=== PATIENT | female | born 1945 | race Caucasian/White ===

== ENCOUNTER 2016-09-14 04:14 | Inpatient (IN) ==
[2016-09-08 09:34] LABS: MANUAL DIFF NEEDED? NO; URINE MICRO REVIEW NEEDED? NO; URINE SOURCE CLEAN CATCH
[2016-09-08 09:53] LABS: BASO% 0.1 % (0.0-0.8); EOS# 0.13 X1000 (0.0-0.7); EOS% 1.5 % (0.0-10.0); HEMATOCRIT 37.1 % (37.0-47.0); IMM GRAN# 0.02 X1000 (0.0-0.04); IMM GRAN% 0.2 % (0.0-0.5); LYMPH# 1.86 X1000 (1.2-3.4); LYMPH% 20.8 % (20.5-51.1); MCH 30.2 PG (27-31); MCHC 32.3 g/dL (33-37); MCV 93.5 FL (81-99); MONO# 0.43 X1000 (0.11-0.59); MONO% 4.8 % (1.7-9.3); MPV 9.2 FL (7.4-10.4); NEUT% 72.6 % (42.2-75.2); PLT 247 X1000 (130-400); RBC 3.97 XMIL (4.2-5.4)
--- NOTE | 2016-09-08 09:55 | EKG Report ---
Test Performed on : 09/08/2016 09:09:34 AM Test Reason : PAT Blood Pressure : / mmHG Vent. Rate : 072 BPM Atrial Rate : 072 BPM P-R Int : 158 ms QRS Dur : 098 ms QT Int : 380 ms P-R-T Axes : 047 012 050 degrees QTc Int : 416 ms Normal sinus rhythm. with sinus arrhythmia. Incomplete right bundle branch block Borderline ECG No previous ECGs available Confirmed by Sadiq BROWN, Jerry Varela ([id number]) on 09/08/2016 5:57:53 PM
[2016-09-08 09:56] LABS: BILIRUBIN URINE NEGATIVE (NEGATIVE); BLOOD URINE NEGATIVE (NEGATIVE); COLOR YELLOW; GLUCOSE URINE NEGATIVE (NEGATIVE); LEUKOCYTES URINE NEGATIVE (NEGATIVE); NITRITE URINE NEGATIVE (NEGATIVE); PH URINE 6.5; PROTEIN URINE NEGATIVE (NEGATIVE); SP GRAVITY URINE 1.012; TURBIDITY URINE CLEAR (CLEAR); UROBILINOGEN URINE NORMAL (NORMAL)
[2016-09-08 09:58] LABS: UR EPITHELIAL CELLS <10 /HPF (<10); URINE BACTERIA NEGATIVE /HPF; URINE RBC <10 /HPF (<10); URINE WBC <10 /HPF (<10)
[2016-09-08 10:06] LABS: INR 1.02; PROTIME 10.7 Seconds (9.2-11.7); PTT 27.1 Seconds (22.0-36.0)
[2016-09-08 10:45] LABS: AGAP 13; BUN 19 mg/dL (8-22); CALCIUM 9.5 mg/dL (8.8-10.2); CHLORIDE 97 mmol/L (98-107); COSMO 280; POTASSIUM 4.6 mmol/L (3.5-5.1); SODIUM 139 mmol/L (136-145); TCO2 29 mmol/L (25-35)
[2016-09-14] MEDS ORDERED: COLACE ONE (05:22)
[2016-09-14] MEDS ORDERED: CELEBREX ONE (05:22)
[2016-09-14] MEDS ORDERED: LR 0 ML ONE (05:22)
[2016-09-14] MEDS ORDERED: LR 1,000 ML ONE (05:22)
[2016-09-14] MEDS ORDERED: VANCOMYCIN 1 GM/NS 1 GM/250 ML IVPB ONE (05:22)
[2016-09-14] MEDS ORDERED: LYRICA ONE (05:22)
[2016-09-14] MEDS ORDERED: PEPCID ONE (05:23)
[2016-09-14] MEDS ORDERED: REGLAN ONE (05:29)
[2016-09-14] MEDS ORDERED: TORADOL ONE (06:36)
[2016-09-14] MEDS ORDERED: CYKLOKAPRON 1,000 MG/NS 1,000 MG/100 ML IVPB ONE ×2 (06:36→06:37)
[2016-09-14] MEDS ORDERED: VANCOMYCIN ONE (06:36)
[2016-09-14] MEDS ORDERED: DURAMORPH ONE (06:36)
[2016-09-14] MEDS ORDERED: SODIUM CHLORIDE 0.9% ONE (06:36)
[2016-09-14] MEDS ORDERED: MARCAINE 0.25% PF/EPI 1:200,000 ONE (06:36)
[2016-09-14] MEDS ORDERED: NEOSPORIN G.U. IRRIGANT ONE (06:37)
[2016-09-14] MEDS ORDERED: CLAVE SECONDARY SET 11953 ONE (06:37)
[2016-09-14] MEDS ORDERED: EXPAREL 1.3% ONE (06:37)
--- NOTE | 2016-09-14 07:16 | HISTORY AND PHYSICAL ---
CHIEF COMPLAINT: Right-sided knee pain. HISTORY OF PRESENT ILLNESS: Ms. Dukes is a 71-year-old, white female with a history of right knee pain for over 1 year. She still has pain with her right knee despite conservative therapy. She is being admitted to the hospital today for a right total knee arthroplasty. PAST MEDICAL HISTORY: Hypertension, hyperlipidemia, anxiety, and depression. PAST SURGICAL HISTORY: Left total knee arthroplasty and hysterectomy. FAMILY HISTORY: Noncontributory. SOCIAL HISTORY: She is . She denies using tobacco and alcohol. HOME MEDICATIONS: Gabapentin 300 mg p.o. b.i.d., aripiprazole 2 mg p.o. daily, potassium chloride 20 mEq p.o. daily, meloxicam 15 mg p.o. daily, clonazepam 1 mg p.o. daily, ergocalciferol 50,000 units p.o. daily, losartan potassium 100 mg p.o. daily, Zyrtec 10 mg p.o. daily, Lasix 40 mg p.o. daily, Lipitor 20 mg p.o. daily, Elavil 50 mg p.o. daily, [place] 7.5 one p.o. b.i.d. p.r.n. ALLERGIES: Penicillin. PRIMARY CARE PROVIDER: Dr. Reid in [place]. REVIEW OF SYSTEMS: HEENT: Patient reports having dentures and glasses. Denies any problems hearing, any problems with ears, nose, and throat. Cardiac: Patient denies any cardiac history, chest pain, or shortness of breath. Pulmonary: Patient denies any wheezing, coughing, or hemoptysis. Gastrointestinal: Patient denies any chronic gastrointestinal problems, any nausea, vomiting, diarrhea. Genitourinary: Patient denies any genitourinary problems such as urinary tract infection or any other kind of bladder problems. Neurological: Patient denies any numbness or tingling. Reports having good sensation. Musculoskeletal: Patient reports having right knee pain for greater than a year now and it has progressively gotten worse. PHYSICAL EXAMINATION: GENERAL: The patient is awake, sitting up in bed. She is articulate and able to answer questions appropriately. HEENT: Head is normocephalic, atraumatic. Pupils equal, round, reactive to light. Nares patent. Throat without exudate. CARDIAC: S1-S2 auscultated. No murmur, rub, or gallop noted. LUNGS: Clear to auscultation bilaterally in all lung nixon. GASTROINTESTINAL: Abdomen is soft, nontender, nondistended. Bowel sounds present in all quadrants. GENITOURINARY: Not examined. NEUROLOGICAL: Patient has good sensation to dull touch in all extremities. Cranial nerves 2-12 are grossly intact. MUSCULOSKELETAL: Physical examination of the right knee reveals patient has pain with palpation of the right knee as well as passive range of motion. IMPRESSION: Osteoarthritis of the right knee. PLAN: Right total knee arthroplasty. The risks, benefits, and alternatives of surgery were discussed with the patient including risks of anesthesia, bleeding, damage to blood vessels, nerves, tendons, ligaments, and other imponderables. The patient agrees to proceed with the surgery at this time. Dictated by ANTONIO Real for Marshal Escobar MD cc: ANTONIO Real MD
[2016-09-14 07:41] LABS: URINE MICRO REVIEW NEEDED? NO; URINE SOURCE CATH
[2016-09-14 07:45] LABS: BILIRUBIN URINE NEGATIVE (NEGATIVE); BLOOD URINE NEGATIVE (NEGATIVE); COLOR YELLOW; GLUCOSE URINE NEGATIVE (NEGATIVE); LEUKOCYTES URINE NEGATIVE (NEGATIVE); NITRITE URINE NEGATIVE (NEGATIVE); PH URINE 5.5; PROTEIN URINE NEGATIVE (NEGATIVE); SP GRAVITY URINE 1.019; TURBIDITY URINE CLEAR (CLEAR); UROBILINOGEN URINE NORMAL (NORMAL)
[2016-09-14 07:47] LABS: UR EPITHELIAL CELLS <10 /HPF (<10); URINE BACTERIA 1+ /HPF; URINE RBC <10 /HPF (<10); URINE WBC <10 /HPF (<10)
[2016-09-14] MEDS ORDERED: KLONOPIN PO SCH (09:00)
--- NOTE | 2016-09-14 09:15 | OPERATIVE NOTE ---
PROCEDURE DATE: 09/14/2016 PREOPERATIVE DIAGNOSIS: Degenerative osteoarthritis of the right knee. POSTOPERATIVE DIAGNOSIS: Degenerative osteoarthritis of the right knee. PROCEDURE PERFORMED: Right total knee arthroplasty, DePuy Attune size 6 narrow posterior stabilized femur, size 6 tibial baseplate, a 7 mm rotating platform tibial insert, and a 35 mm medialized anatomic patella. SURGEON: Marshal Escobar MD. FIRST ASSISTANTS: RUBA Young. SECOND DWARF TREE GROWER: ANTONIO Real. ANESTHESIA: Spinal. IV FLUIDS: 2000 mL of lactated Ringer's. ESTIMATED BLOOD LOSS: 30 mL. TOURNIQUET TIME: 75 minutes at 350 mmHg. COMPLICATIONS: None. INDICATION: The patient is a 71-year-old female with a chronic history of worsening pain and discomfort of the right knee. Continued pain and discomfort despite appropriate nonoperative treatment. X-rays revealed degenerative osteoarthritis. The recommendation to proceed with right total knee arthroplasty was offered. Risks and benefits of surgery were explained, including the risks of anesthesia, , bleeding, infection, failure to relieve pain, postoperative stiffness, nerve injury, blood clots, and other imponderables. All questions were answered. The patient and family wished to proceed with surgery. DETAILS OF OPERATION: The patient was taken to the operating room and placed supine on the operating table. Once adequate anesthesia was obtained, the patient was placed supinely on the operating table. The right lower extremity was subsequently prepped and draped in the usual sterile fashion. Esmarch was used to exsanguinate the right lower extremity. The tourniquet was inflated to 350 mmHg. A standard anterior incision was made with a skin knife. Medial and lateral skin envelopes were developed. Standard medial parapatellar arthrotomy was then performed. Patella fat pad was excised. Retractors were then placed. Approximately 1 cm anterior to the PCL insertion, starting reamer was passed. Intramedullary guide with the distal femoral cutting block was pinned in position. The distal femoral cut was then performed. A sizing block was placed and measured size 6. Corresponding pins were placed. A size 6 cutting block was then placed in position. Anterior, posterior, and chamfer cuts were then made. Attention was turned to the proximal tibia where further resection of the ACL and PCL was performed. Next, using the extramedullary guide, the proximal tibia cutting block was pinned in position. It had good alignment confirmed with the alignment starla. The proximal tibia was then resected. The medial and lateral meniscus was excised. A curved osteotome was used to remove the posterior osteophytes. A spacer block was placed and had good soft tissue balance in both flexion and extension. Attention was turned to the proximal tibia. A size 6 baseplate appeared to be the correct size. This was pinned in position. This followed by a central reamer and a fin punch. A box cutting guide was placed on the distal femur. A box cut was then performed. A trial femoral component was then placed. The 2 lug holes were drilled. A trial tibial insert was then placed and had good soft tissue balancing. The patella was everted and resected in a standard fashion. A 35 appeared to be the correct size. Corresponding holes were drilled. The trial patella component was then placed in position and had good patellofemoral tracking. Trial components were then removed. Copious irrigation was then performed with antibiotic irrigation while vancomycin was mixed with cement on the back table. Sequential cementing was then performed, first with the tibial tray and excess cement with a Malone, followed by the femoral component and excess cement was removed with a Malone, followed by trial tibial insert in full extension and axial loading was maintained while the cement cured. The patella component was cemented in standard fashion. Patella clamp was placed. While the cement was curing, Exparel was placed in the deep soft tissue as well as the subcutaneous tissue. After cement cured, the peripheral cement was removed with a small osteotome. A 7 mm rotating platform tibial insert had good soft tissue balance and range of motion. The trial insert was removed. Exparel was then placed in the posterior capsule. Copious irrigation was then performed with antibiotic pulsatile lavage, followed by a 7 mm rotating platform tibial insert. A 1/8 Hemovac drain was placed but was not sewn in. Copious irrigation was then performed once again with antibiotic pulsatile lavage. Number 1 Vicryl was used to repair the arthrotomy, followed by 2-0 Vicryl to repair the subcutaneous tissue, and skin cyndi. Adaptic, sterile 4 x 4, Webril, cryo unit, and Dimitri wrap were applied to the right lower extremity. Patient tolerated the procedure well with no complications and was transferred to the recovery room in stable condition. cc: Marshal Escobar MD
[2016-09-14] MEDS ORDERED: OFIRMEV 1000 MG/ISOTONIC SOLN 1,000 MG/100 ML BOTTLE ONE (09:29)
[2016-09-14] MEDS ORDERED: DECADRON ONE (09:29)
[2016-09-14] MEDS ORDERED: ZOFRAN ONE (09:29)
[2016-09-14] MEDS ORDERED: NS 1,000 ML ONE (09:29)
[2016-09-14] MEDS ORDERED: LR 2,000 ML ONE (09:29)
--- NOTE | 2016-09-14 10:11 | Diag Imaging Result Document ---
PROCEDURE NAME: KNEE 1-2 VIEWS-RIGHT - 09/14/2016 RIGHT KNEE FRONTAL AND LATERAL, TWO VIEWS: FINDINGS: There are anterior skin cyndi and there is a superior surgical drain. The patient has undergone orthopaedic replacement of the knee. There is good alignment to the femoral and tibial components. No fracture or dislocation. IMPRESSION: Recently replaced right knee.
[2016-09-14] MEDS ORDERED: MILK OF MAGNESIA PO PRN (10:30)
[2016-09-14] MEDS ORDERED: ZOFRAN PO PRN (10:30)
[2016-09-14] MEDS ORDERED: MORPHINE IV PRN (10:30)
[2016-09-14] MEDS: ABILIFY PO SCH (11:04)
[2016-09-14] MEDS: KLOR-CON PO SCH (11:05)
[2016-09-14] MEDS: NEURONTIN PO SCH ×2 (11:05→22:00)
[2016-09-14] MEDS: COZAAR PO SCH (11:05)
[2016-09-14] MEDS: ZYRTEC PO SCH (11:05)
[2016-09-14] MEDS: MOBIC PO SCH (11:06)
[2016-09-14] MEDS: ELAVIL PO SCH ×3 (11:06→22:00)
[2016-09-14] MEDS: LASIX PO SCH (11:06)
[2016-09-14] MEDS: LIPITOR PO SCH (11:06)
[2016-09-14] MEDS ORDERED: DIPRIVAN 1% ONE (12:24)
[2016-09-14] MEDS ORDERED: VERSED ONE (12:24)
[2016-09-14] MEDS ORDERED: FENTANYL ONE (12:24)
[2016-09-14] MEDS: OXY IR PO PRN ×3 (13:31→21:59)
[2016-09-14] MEDS: NS 1,000 ML IV SCH ×2 (13:31→21:59)
[2016-09-14] MEDS: TYLENOL PO SCH ×2 (13:31→22:00)
[2016-09-14] MEDS ORDERED: VANCOMYCIN 1 GM/NS 1 GM/250 ML IVPB IV ONE (19:30)
[2016-09-14] MEDS: PERIDEX MT SCH (22:00)
[2016-09-14] MEDS: KLONOPIN PO SCH (22:00)
[2016-09-14] MEDS: COLACE PO SCH (22:00)
[2016-09-15] MEDS: TYLENOL PO SCH ×4 (03:21→20:53)
[2016-09-15 06:00] LABS: HEMATOCRIT 30.8 % (37.0-47.0); HEMOGLOBIN 9.7 g/dL (12.0-16.0)
[2016-09-15 06:12] LABS: AGAP 11; BUN 12 mg/dL (8-22); CALCIUM 8.5 mg/dL (8.8-10.2); CHLORIDE 104 mmol/L (98-107); COSMO 280; POTASSIUM 4.3 mmol/L (3.5-5.1); SODIUM 140 mmol/L (136-145); TCO2 25 mmol/L (25-35)
[2016-09-15] MEDS: XARELTO PO SCH (06:27)
--- NOTE | 2016-09-15 06:55 | PROGRESS NOTE ---
DATE: 09/15/2016 SUBJECTIVE: The patient is a pleasant 71-year-old female who is 1 day status post right total knee arthroplasty. The patient is currently resting comfortably and has no complaints. OBJECTIVE: On physical exam of her right lower extremity, her dressing is intact. Calf is soft. She is neurovascularly intact distally. She has active dorsiflexion and plantar flexion. Her hemoglobin is 9.7, hematocrit is 30.8. IMPRESSION: Postop day #1 status post right total knee arthroplasty. PLAN: At this point, we will change her dressing, discontinue her drain and Ferrer. We will also Hep-Lock her IV. We will mobilize physical therapy. We will consult [facility] for inpatient rehabilitation. cc: Marshal Escobar MD
[2016-09-15] MEDS: OXY IR PO PRN ×6 (07:48→22:43)
[2016-09-15] MEDS ORDERED: DECADRON IV ONE (09:00)
[2016-09-15] MEDS: ABILIFY PO SCH (09:15)
[2016-09-15] MEDS: LIPITOR PO SCH (09:16)
[2016-09-15] MEDS: COZAAR PO SCH (09:16)
[2016-09-15] MEDS: KLOR-CON PO SCH (09:17)
[2016-09-15] MEDS: LASIX PO SCH (09:18)
[2016-09-15] MEDS: COLACE PO SCH ×2 (09:18→20:52)
[2016-09-15] MEDS: MOBIC PO SCH (09:18)
[2016-09-15] MEDS: PEPCID PO SCH (09:19)
[2016-09-15] MEDS: ZYRTEC PO SCH (09:20)
[2016-09-15] MEDS: NEURONTIN PO SCH ×2 (09:20→20:53)
[2016-09-15] MEDS: PERIDEX MT SCH ×2 (12:37→20:52)
[2016-09-15] MEDS: NS 1,000 ML IV SCH (18:30)
[2016-09-15] MEDS: KLONOPIN PO SCH (20:52)
[2016-09-15] MEDS: ELAVIL PO SCH (20:53)
[2016-09-16] MEDS: TYLENOL PO SCH ×2 (03:49→04:11)
[2016-09-16] MEDS: NS 1,000 ML IV SCH ×2 (03:50→12:48)
[2016-09-16] MEDS: OXY IR PO PRN ×6 (04:11→21:10)
[2016-09-16 05:46] LABS: HEMOGLOBIN 9.7 g/dL (12.0-16.0)
[2016-09-16] MEDS ORDERED: PERCOCET-5 PO PRN (06:07)
[2016-09-16] MEDS: XARELTO PO SCH (06:07)
[2016-09-16] MEDS ORDERED: TYLENOL PO PRN (06:13)
--- NOTE | 2016-09-16 06:27 | PROGRESS NOTE ---
DATE: 09/16/2016 SUBJECTIVE: The patient is a pleasant 71-year-old female, who is 2 days status post right total knee arthroplasty. She is currently resting comfortably this morning and has no significant complaints. OBJECTIVE: The patient's right lower extremity, her wound looks good. There are no signs or symptoms of infection. Calf is soft. She is able to actively dorsiflex and plantar flex her foot. She is neurovascularly intact distally. LABORATORY DATA: Her hemoglobin is 9.7 and 30.0. IMPRESSION: Is postop day #2, status post right total knee arthroplasty. PLAN: At this point, we are planning on discharging the patient to rehab tomorrow. She will continue to progress with physical therapy with full weightbearing right lower extremity. cc: Marshal Escobar MD
--- NOTE | 2016-09-16 06:36 | DISCHARGE SUMMARY ---
ADMISSION DATE: 09/14/2016 DISCHARGE DATE: ADMITTING DIAGNOSIS: Degenerative osteoarthritis of the right knee. DISCHARGE DIAGNOSIS: Degenerative osteoarthritis of the right knee. , status post right total knee arthroplasty. BRIEF HISTORY: The patient is a pleasant 71-year-old female with chronic history of worsening pain and discomfort over right knee. Has had continued pain and discomfort despite appropriate nonoperative treatment. X-rays revealed underlying degenerative osteoarthritis and recommendation to proceed with right total knee arthroplasty was offered. Risks and benefits of surgery explained, including risks of anesthesia, , bleeding, infection, failure to relieve pain, postoperative stiffness, nerve injury, blood clots, and other imponderables. All questions were answered and the patient wished to proceed with surgery. HOSPITAL COURSE AND TREATMENT: Patient admitted to the hospital and underwent right total knee arthroplasty. She tolerated that procedure well and had an uneventful postoperative course. By postoperative day #2, her hemoglobin and hematocrit had stabilized to 9.7 and 30.0. Prior discharge, the patient is afebrile, tolerating a regular diet. Wound looked good. There were no signs or symptoms of infection. Her pain was well controlled with p.o. medication. The patient was progressing with physical therapy and it was felt that she would benefit from inpatient rehabilitation. The patient and family were agreeable to this. DISCHARGE MEDICATIONS: 1. OxyIR 5 mg, 1-2 p.o. q. 3 hours p.r.n. pain. 2. Xarelto 10 mg x2 weeks. 3. For remaining medications, please see the medication list. DISCHARGED INSTRUCTIONS: 1. The patient will be discharged for inpatient rehabilitation. 2. Consult physical therapy with full weightbearing and range of motion exercises and gait training per total knee protocol. 3. Discontinue cyndi in 11 days. 4. Follow up in the office in 3-4 weeks. cc: Marshal Escobar MD
[2016-09-16] MEDS: LIPITOR PO SCH (08:19)
[2016-09-16] MEDS: KLOR-CON PO SCH (08:19)
[2016-09-16] MEDS: NEURONTIN PO SCH ×2 (08:20→21:11)
[2016-09-16] MEDS: MOBIC PO SCH (08:20)
[2016-09-16] MEDS: ABILIFY PO SCH (08:20)
[2016-09-16] MEDS: LASIX PO SCH (08:21)
[2016-09-16] MEDS: COZAAR PO SCH (08:21)
[2016-09-16] MEDS: COLACE PO SCH ×2 (08:21→21:11)
[2016-09-16] MEDS: PEPCID PO SCH (08:21)
[2016-09-16] MEDS: PERIDEX MT SCH ×2 (08:21→21:11)
[2016-09-16] MEDS: ZYRTEC PO SCH (08:21)
[2016-09-16] MEDS: ELAVIL PO SCH (21:11)
[2016-09-16] MEDS: KLONOPIN PO SCH (21:11)
[2016-09-17] MEDS: NS 1,000 ML IV SCH (01:33)
[2016-09-17] MEDS: OXY IR PO PRN ×3 (03:02→09:26)
[2016-09-17 05:49] LABS: HEMATOCRIT 29.3 % (37.0-47.0); HEMOGLOBIN 9.2 g/dL (12.0-16.0)
[2016-09-17] MEDS: XARELTO PO SCH (06:25)
[2016-09-17 08:58] VITALS: BP 139/77
[2016-09-17] MEDS: COZAAR PO SCH (09:27)
[2016-09-17] MEDS: NEURONTIN PO SCH (09:27)
[2016-09-17] MEDS: KLOR-CON PO SCH (09:27)
[2016-09-17] MEDS: LIPITOR PO SCH (09:27)
[2016-09-17] MEDS: LASIX PO SCH (09:28)
[2016-09-17] MEDS: PERIDEX MT SCH (09:28)
[2016-09-17] MEDS: COLACE PO SCH (09:28)
[2016-09-17] MEDS: PEPCID PO SCH (09:28)
[2016-09-17] MEDS: MOBIC PO SCH (09:28)
[2016-09-17] MEDS: ZYRTEC PO SCH (09:28)
[2016-09-17] MEDS: ABILIFY PO SCH (09:28)
== END 2016-09-17 09:56 ==
LOC: SURHOLD 04:14 → 4N 08:09
PROVIDERS: ADMIT Orthopaedic Surgery Adult Reconstructive Orthopaedic Surgery; ATTEND Orthopaedic Surgery Adult Reconstructive Orthopaedic Surgery